=== PATIENT | male | born 1960 | race African-American/Black ===

== ENCOUNTER → 2019-07-10 | Outpatient (CLI) | payer BC ==
[2014-03-18 10:19] VITALS: BP 109/69
[~2019-07-10] MED LIST: Aspirin PO; OMEP20TA63 PO
--- NOTE | 2019-07-10 14:01 | KCIC ---
AP, lateral spot and lateral views of the lumbar spine were performed. History: Lumbar pain and sciatic pain for 3 weeks after heavy lifting. Comparison: None. There is no fracture or listhesis. There is minimal scoliosis. There is also very mild degenerative change. There is normal alignment of the spine. Electronically signed by: Alexey Hand MD (07/10/2019 1:58 PM) [id number]
== END | disposition home or self-care (01) ==
LOC: KCIC 12:43
PROVIDERS: ATTEND Family Medicine
DX: S39.012A Strain of muscle, fascia and tendon of lower back, initial encounter (principal); M41.86 Other forms of scoliosis, lumbar region; M47.816 Spondylosis without myelopathy or radiculopathy, lumbar region; X58.XXXA Exposure to other specified factors, initial encounter; Y93.89 Activity, other specified; Y92.89 Other specified places as the place of occurrence of the external cause; Y99.8 Other external cause status
CPT/HCPCS: 72100

== ENCOUNTER → 2020-08-21 | Outpatient (CLI) | payer BC ==
[2014-03-18 10:19] VITALS: BP 109/69
--- NOTE | 2020-08-21 10:11 | KCIC ---
MR LUMBAR SPINE WO [id number] History: Reason: RADICULAR BACK PAIN / Spl. Instructions: / History: Progressing lower back pain int o BLE in recent months. Technique: Multiplanar, multi sequential MR imaging was performed of the lumbar spine. Comparison: None Findings: Normal vertebral body height and alignment. No fracture. Minimal degenerative endplate edema L5-S1. Conus terminates at the normal location. No evidence of nerve root clumping. L1-L2: No canal or neuroforaminal narrowing. L2-L3: Minimal foraminal disc protrusions. No neuroforaminal narrowing. No canal narrowing. Mild fac et arthropathy. L3-L4: Broad-based disc bulge. Moderate facet arthropathy. Ligament of flavum thickening. Mild canal narrowing. Moderate subarticular recess narrowing. Moderate bilateral neuroforaminal narrowing. L4-L5: Broad-based disc bulge. Moderate canal narrowing. Severe subarticular recess narrowing. Advan j luis facet arthropathy. Ligament of flavum thickening. Moderate bilateral neuroforaminal narrowing. L5-S1: Broad-based disc bulge. Mild canal narrowing. Moderate facet arthropathy. Subarticular recess narrowing. Severe bilateral neuroforaminal narrowing. Impression: 1. Multilevel lumbar spondylosis most prominent L4-L5 and L5-S1. 2. L4-5 moderate canal narrowing with severe subarticular recess narrowing. 3. Neuroforaminal narrowing most severe L5-S1. Electronically signed by: Livan Anthony DO (08/21/2020 10:08 AM) [facility]
== END ==
LOC: KCIC MRI 08:08
PROVIDERS: ATTEND Family Medicine
DX: M47.27 Other spondylosis with radiculopathy, lumbosacral region (principal); M48.07 Spinal stenosis, lumbosacral region
CPT/HCPCS: 72148

== ENCOUNTER → 2020-10-02 | Outpatient (CLI) | payer BC ==
[2014-03-18 10:19] VITALS: BP 109/69
[~2020-10-02] MED LIST changes: +ASCO500C PO; +LOSA100T14 PO; +ZINC50TA39 PO; +vitamin d PO
--- NOTE | 2020-10-02 15:55 | PDOC1 ---
INITIAL PAIN CONSULT DATE OF SERVICE: DOS: DATE: 10/02/20 TIME: 15:48 CHIEF COMPLAINT: Chief Complaint: Low back and bilateral lower extremity pain HISTORY OF PRESENT ILLNESS: 60-year-old male presents with history of pain low back bilateral lower extremities for about a year and a half not resolved any specific injury or accident that he is aware of, but is becoming much more noticeable with time and getting worse with time. Patient reports it is a pain in the low back bilateral lower extremities posterior gluteus posterior lateral thigh lateral anterior thighs and calves slightly more on the right than the left and present bilaterally patient reports no loss of motor function but significant fatigability especially with walking standing patient describes pain is cramping and aching shooting can be throbbing and dull as well with some numbness in the lower extremities can be constant worse at night but also worse in the morning. 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 Patient describes his disability rating from 0-10, 10 being the worst, is a 4 with family home responsibilities and recreation occupation sexual behavior 0 with social activity self-care and life support activities. He did have a MRI scan of the lumbar spine showed multilevel lumbar spondylosis most prominent at L4-5 and L5-S1 with L4-5 moderate canal narrowing with severe subarticular recess narrowing and neuroforaminal narrowing most severe at L5-S1 patient is seen neurosurgeon recently who is recommending more conservative treatments as opposed to open surgery. PAST MEDICAL HISTORY: PMH: Hypertension, arthritis, prostate cancer PREVIOUS SURGERIES: Past Surgical Hx: Prostatectomy 2020 CURRENT MEDICATIONS: Current Meds: Active Scripts Medications Dose Route/Sig Max Daily Dose Days Date Category Prilosec Otc (Omeprazole Magnesium) 20 Mg Tablet. 20 Mg PO DAILY 03/18/14 Rx [Aspirin] 81 MG Tablet. 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 REVIEW OF SYSTEMS: ROS: Positive for those items mentioned in history of present illness, all systems are reviewed, otherwise negative ,and are complete full and well-documented on patient's chart. PHYSICAL EXAM: VS: Blood pressure is 105 pulse 107 respirations 18 temperature 98.8 F height 5 feet 11 inches weight is 291 pounds PE: PHYSICAL EXAMINATION: GENERAL: The patient is awake, alert, oriented, appropriate, very pleasant demeanor. HEENT: Shows normocephalic, atraumatic. Extraocular movements are intact and symmetrical. Oral cavity: Mucous membranes moist and pink. Dentition is intact. NECK: Shows anterior throat supple without palpable lymphadenopathy noted. Swallow reflex symmetrical. CHEST: Shows normal on inspection. Breath sounds are clear bilaterally, distant but no rales rhonchi or wheeze auscultated. HEART: Shows S1, S2 clear. No murmurs auscultated. ABDOMEN: Soft, nontender, nondistended, obese. No palpable organomegaly is noted. No rebound or guarding demonstrated. BACK: Shows spine grossly in the midline. Normal-appearing cervical lordotic curvature. There is mildly increased thoracic kyphosis, some flattening of the lumbar lordotic curvature. Lumbar paraspinous muscles show symmetrical on inspection, on palpation shows some moderate tenderness diffusely throughout the middle and lower distribution of the paraspinous muscles bilaterally and also into the lower thoracic paraspinous musculature, firm and tender, but without specific trigger points, without radiation of pain. The patient has good rotational motion of the lumbar spine, both laterally as well as extension and flexion without significant difficulty. No tenderness over the spinous processes, sacrum or sacroiliac regions. EXTREMITIES: Lower extremities show deep tendon reflexes 2+ in the patellar and tendo calcaneus tendons. Motor exam is 5 on a scale of 5 with right dorsiflexion, extension, quadriceps and hamstring flexion and 5/5 on the left. Peripheral pulses are 1+ posterior tibial. No peripheral edema is noted bilaterally. Lower extremities are warm and dry to touch, equal in color and appearance. Straight leg raise noted to be positive bilaterally 35 degrees on the right and 45 degrees on the left both decreased with knee flexion. Gaenslen's and Odell's maneuvers are negative bilaterally. The patient is able to stand, stand on his toes without significant difficulty loss of balance walks with a slight shuffling gait does not appear to favor the right or left lower extremity significantly and is not use any assistive devices to ambulate such as canes or walkers. SKIN: Shows warm and dry, good turgor. No edema. No sores, rashes or bruising throughout. IMPRESSION: Impression: 60-year-old male with 1-1/2-year history low back bilateral lower extremity pain greater on the right than the left and present bilaterally in a radicular fashion. MRI scan lumbar spine as noted. Hypertension Arthritis Obesity History of prostate cancer Plan: Options were discussed with the patient including conservative management physical therapies interventional techniques. Patient would like Provigil techniques. We discussed a lumbar epidural steroid injection using description as well as anatomical models to describe the procedure. Patient will check his personal schedule for an appropriate time that he can rest and not be working after injection. Once determined, we will have him return for lumbar epidural steroid injection at that time. In the meantime patient will continue with stretching strength exercises as currently as well as oral analgesics as currently. YADIRA LAKE MD Oct 02, 2020 15:55
== END | disposition home or self-care (01) ==
LOC: PNCL 14:21
PROVIDERS: ATTEND Anesthesiology
DX: M54.5 Low back pain (principal); M79.605 Pain in left leg; M79.604 Pain in right leg; I10 Essential (primary) hypertension; G47.30 Sleep apnea, unspecified; M19.90 Unspecified osteoarthritis, unspecified site; E66.9 Obesity, unspecified; Z85.46 Personal history of malignant neoplasm of prostate; Z98.890 Other specified postprocedural states; Z79.899 Other long term (current) drug therapy
CPT/HCPCS: G0463

== ENCOUNTER → 2020-10-08 | Outpatient (CLI) | payer BC ==
[2014-03-18 10:19] VITALS: BP 109/69
[~2020-10-08] MED LIST changes: +IOHEXOL 180 MG/ML 10 ML VIAL. ONE; +methylPREDNISolone ACETATE 40 MG/ML VIAL. ONE; +methylPREDNISolone ACETATE 80 MG/ML VIAL. ONE
--- NOTE | 2020-10-08 12:57 | PDOC ---
Progress Note - Pain Clinic Date of Service: DOS: DATE: 10/08/20 TIME: 12:54 Diagnosis: Dx: Lumbar to colopathy with lumbar degenerative disease and lumbar spinal stenosis with lumbar spondylosis History or Present Illness: HPI: 60-year-old male returns for follow-up status post initial evaluation and returns for lumbar epidural steroid injection today. Patient reports he has a new finding of cramping in the lower extremities bilaterally in the thighs and calves mostly posteriorly but otherwise pain is essentially the same in the low back and bilateral lower extremities posterior gluteus posterior lateral thigh lateral anterior thighs anterior medial lower legs as well patient reports the cramping is started over the past week or so better with sitting or lying down generally start awakening from sleep at night patient reports its a 7 on a scale of 10 at all times worst least and average is a 7 today. Patient reports on and off in intensity no new motor or sensory deficits no bowel or bladder incontinence or other complaints. Physical Exam: VS: Blood pressure is 149/99 temperature 98.8 F respirations 16 height is 5 foot 11 inches weight is 290 pounds PE: PHYSICAL EXAMINATION: GENERAL: The patient is awake, alert, oriented, appropriate, very pleasant in demeanor HEENT: Shows normocephalic, atraumatic. NECK: Shows anterior throat supple without palpable lymphadenopathy noted. CHEST: Shows normal on inspection. Breath sounds are clear bilaterally. HEART: Shows S1, S2 clear. No murmurs auscultated. ABDOMEN: Soft, nontender, nondistended. No palpable organomegaly is noted. No rebound or guarding demonstrated. BACK: Shows spine grossly in the midline. Normal-appearing cervical lordotic curvature. There is increased thoracic kyphosis, some flattening of the lumbar lordotic curvature. Lumbar paraspinous muscles show symmetrical on inspection, on palpation shows some moderate tenderness diffusely throughout the upper, middle and lower distribution of the paraspinous muscles, but without specific trigger points, without radiation of pain. The patient has good rotational motion of the lumbar spine, both laterally as well as extension and flexion without significant difficulty. EXTREMITIES: Lower extremities show deep tendon reflexes 2+ in the patellar and tendo calcaneus tendons. Motor exam is 5 on a scale of 5 with right dorsiflexion, extension, quadriceps and hamstring flexion and 5/5 on the left. Peripheral pulses are 1+ posterior tibial. No peripheral edema is noted bilaterally. Lower extremities are warm and dry to touch, equal in color and appearance. SKIN: Shows warm and dry, good turgor. No edema. No sores, rashes or bruising throughout. Procedure: Procedure: Options were discussed the patient. Patient's old chart was reviewed his current medication regimen updated current review of systems updated today as well. We will proceed with a lumbar epidural steroid injection today with fluoroscopic guidance. Risks were discussed including but not limited to: Bleeding, infection, possibility of epidural hematoma and subsequent neurological compromise, dural puncture, headaches, spinal cord and/or nerve damage, side effects of steroid medication, and poor results regarding pain control. Patient understands and wished to proceed. Patient return to clinic in approximate 2 weeks for follow-up, was counseled as return appointment activity level and side effects to be aware of. Medication Injected: Med Injected: Procedure is lumbar epidural steroid injection under local anesthetic using sterile prep and drape at the L4-5 level using C-arm fluoroscopic guidance in both AP and lateral views medications injected is 120 mg Depo-Medrol +10mL preservative-free normal saline and 2 mL contrast- condition at discharge is stable patient tolerated procedure well had no complications. Condition at Discharge: Condition at Discharge: Condition at discharge stable, patient alert the procedure well and had no complications. YADIRA LAKE MD Oct 08, 2020 12:57
--- NOTE | 2020-10-08 12:57 | PDOC4 ---
Procedure Note: Procedure Note: Patient was consented for lumbar epidural steroid injection. Risks were discussed including but not limited to: Bleeding, infection, possibility of epidural hematoma and subsequent neurological compromise, dural puncture, headaches, spinal cord and/or nerve damage, side effects of steroid medication, and poor results regarding pain control. Patient understands and wished to proceed. Procedure is lumbar epidural steroid injection under local anesthetic using sterile prep and drape at the L4-5 level using C-arm fluoroscopic guidance in both AP and lateral views medications injected is 120 mg Depo-Medrol +10mL preservative-free normal saline and 2 mL contrast- condition at discharge is stable patient tolerated procedure well had no complications. YADIRA LAKE MD Oct 08, 2020 12:57
== END | disposition home or self-care (01) ==
LOC: PNCL 11:55
PROVIDERS: ATTEND Anesthesiology
DX: M51.16 Intervertebral disc disorders with radiculopathy, lumbar region (principal); M48.061 Spinal stenosis, lumbar region without neurogenic claudication; M47.26 Other spondylosis with radiculopathy, lumbar region; G47.30 Sleep apnea, unspecified; Z79.899 Other long term (current) drug therapy; Z98.890 Other specified postprocedural states
CPT/HCPCS: 62323; J1030; J1040; Q9965

== ENCOUNTER → 2020-11-20 | Outpatient (CLI) | payer BC ==
[2014-03-18 10:19] VITALS: BP 109/69
[~2020-11-20] MED LIST changes: -methylPREDNISolone ACETATE 40 MG/ML VIAL. ONE
--- NOTE | 2020-11-20 11:08 | PDOC ---
Progress Note - Pain Clinic Date of Service: DOS: DATE: 11/20/20 TIME: 11:04 Diagnosis: Dx: Lumbar radiculopathy with lumbar degenerative disease and lumbar spinal stenosis with lumbar spondylosis History or Present Illness: HPI: 60-year-old male returns for follow-up status post lumbar epidural steroid action x1. Patient reports about 80% better after the first injection few weeks back with the pain reduced in the back significantly. Patient reports still significant pain in the lower extremities and has pain in bilateral lower extremities currently.. Patient reports no loss of motor function but significant fatigability in the bilateral lower extremities with walking and standing. Patient reports he is doing better with household activities try with greater ease and working with much greater comfort. Patient reports he is sleeping better at night does not generally awaken from sleep at this time. Patient rates his pain a 6 on scale 10 is worse over the past week 5 on average 2 to sleep and is a 2 today. Physical Exam: VS: Blood pressure is 124/83 pulse 87 respirations 16 temperature 90.1 F height is 5 foot 11 inches weight is 290 PE: PHYSICAL EXAMINATION: GENERAL: The patient is awake, alert, oriented, appropriate, very pleasant in demeanor. HEENT: Shows normocephalic, atraumatic. Extraocular movements are intact and symmetrical. Oral cavity: Mucous membranes moist and pink. Dentition is intact. NECK: Shows anterior throat supple without palpable lymphadenopathy noted. Swallow reflex symmetrical. CHEST: Shows normal on inspection. Breath sounds are clear bilaterally. HEART: Shows S1, S2 clear. No murmurs auscultated. ABDOMEN: Soft, nontender, nondistended, obese. No palpable organomegaly is noted. BACK: Shows spine grossly in the midline. Normal-appearing cervical lordotic curvature. There is slightly increased thoracic kyphosis, some minor flattening of the lumbar lordotic curvature. Lumbar paraspinous muscles show symmetrical on inspection, on palpation shows some moderate tenderness diffusely throughout the upper, middle and lower distribution of the paraspinous muscles, but without specific trigger points, without radiation of pain. The patient has good rotational motion of the lumbar spine, both laterally as well as extension and flexion without significant difficulty. EXTREMITIES: Lower extremities show deep tendon reflexes 2+ in the patellar and tendo calcaneus tendons. Motor exam is 5 on a scale of 5 with right dorsiflexion, extension, quadriceps and hamstring flexion and 5/5 on the left. Peripheral pulses are 1 posterior tibial. No peripheral edema is noted bilaterally. Lower extremities are warm and dry. SKIN: Shows warm and dry, good turgor. No edema. No sores, rashes or bruising throughout. Procedure: Procedure: Options discussed with patient. Patient's old chart was reviewed his current medication regimen updated current review of systems updated today as well. We will proceed with a lumbar epidural steroid injection today with fluoroscopic guidance. Risks were discussed including but not limited to: Bleeding, infection, possibility of epidural hematoma and subsequent neurological compromise, dural puncture, headaches, spinal cord and/or nerve damage, side effects of steroid medication, and poor results regarding pain control. Patient understands and wished to proceed. Patient will return to the clinic in approximate weeks for follow-up, was counseled as to return appointment activity level and side effects to be aware of. Medication Injected: Med Injected: Procedure is lumbar epidural steroid injection under local anesthetic using sterile prep and drape at the L4-5 level using C-arm fluoroscopic guidance in both AP and lateral views medications injected is 120 mg Depo-Medrol +10mL preservative-free normal saline and 2 mL contrast- condition at discharge is stable patient tolerated procedure well had no complications. Condition at Discharge: Condition at Discharge: Condition at discharge is stable, patient tolerated the procedure well and had no complications. YADIRA LAKE MD Nov 20, 2020 11:08
--- NOTE | 2020-11-20 11:09 | PDOC4 ---
Procedure Note: ICD 10 Code: ICD 10 Code: M54.16 M 40.06 M 47.816 M51.36 Procedure Note: Patient was consented for lumbar epidural steroid injection with fluoroscopic guidance. Risks were discussed including but not limited to: Bleeding, infection, possibility of epidural hematoma and subsequent neurological comprom ise, dural puncture, headaches, spinal cord and/or nerve damage, side effects of steroid medication, and poor results regarding pain control. Patient understands and wished to proceed. Procedure is lumbar epidural steroid injection under local anesthetic using sterile prep and drape at the L4 5 level using C-arm fluoroscopic guidance in both AP and lateral views medications injected is 120 mg Depo-Medrol +10mL preservative-free normal saline and 2 mL contrast- condition at discharge is stable patient tolerated procedure well had no complications. YADIRA LAKE MD Nov 20, 2020 11:09
== END | disposition home or self-care (01) ==
LOC: PNCL 09:48
PROVIDERS: ATTEND Anesthesiology
DX: M51.16 Intervertebral disc disorders with radiculopathy, lumbar region (principal); M48.061 Spinal stenosis, lumbar region without neurogenic claudication; M47.26 Other spondylosis with radiculopathy, lumbar region; G47.30 Sleep apnea, unspecified; Z79.899 Other long term (current) drug therapy; Z98.890 Other specified postprocedural states
CPT/HCPCS: 62323; J1040; Q9965